=== PATIENT | female | born 1950 | race Caucasian/White ===

== ENCOUNTER 2019-04-04 19:49 | Emergency (ER) | payer OTHER ==
[~2019-04-04] VITALS: Ht 160 cm; Wt 68.0 kg
[2019-04-04] MEDS ORDERED: LODINE300 MG (20:24)
[2019-04-04] MEDS ORDERED: SINGULAIR4 M1 (20:24)
[2019-04-04] MEDS ORDERED: COZAAR25 MG (20:24)
[2019-04-04] MEDS ORDERED: SIMVASTATIN5 MG (20:24)
== END 2019-04-04 22:54 | disposition home or self-care (01) ==
LOC: ER 19:49
DX: S93.492A Sprain of other ligament of left ankle, initial encounter (principal); S99.822A Other specified injuries of left foot, initial encounter; X50.0XXA Overexertion from strenuous movement or load, initial encounter; Y93.01 Activity, walking, marching and hiking; Y92.89 Other specified places as the place of occurrence of the external cause; Y99.8 Other external cause status